=== PATIENT | female | born 1985 | race Caucasian/White ===

== ENCOUNTER 2019-03-07 09:46 | Emergency (ER) | payer OTHER ==
[~2019-03-07] VITALS: Ht 170.2 cm; Wt 114.0 kg
[2019-03-07] MEDS ORDERED: ONDANSETRON 4MG ODT PO ONE (12:15)
[2019-03-07] MEDS ORDERED: HYDROCODONE/ACETAMINOPHEN 5/325MG TABLET PO ONE (12:15)
[2019-03-07] MEDS ORDERED: KETOROLAC 60MG/2ML VIAL IM ONE (12:15)
[2019-03-07] MEDS ORDERED: SODIUM CHLORIDE 0.9% 1,000 ML IV ONE (14:15)
[2019-03-07 17:10] VITALS: BP 121/80
== END 2019-03-07 17:14 | disposition home or self-care (01) ==
LOC: ER 09:46 → EDBEDREQ 14:26 → ER 17:14 → CANBEDREQ 23:46
DX: S16.1XXA Strain of muscle, fascia and tendon at neck level, initial encounter (principal); M54.5 Low back pain; M25.552 Pain in left hip; M25.512 Pain in left shoulder; E03.9 Hypothyroidism, unspecified; Z87.39 Personal history of other diseases of the musculoskeletal system and connective tissue; W01.0XXA Fall on same level from slipping, tripping and stumbling without subsequent striking against object, initial encounter; Y93.89 Activity, other specified; Y92.89 Other specified places as the place of occurrence of the external cause; Y99.8 Other external cause status
CPT/HCPCS: 72100; 72125; 72192; 73030; 73502; 81025; 96372; 99284; J1885; J7030; Q0162